=== PATIENT | male | born 1995 ===

== ENCOUNTER 2017-03-28 11:57 | Emergency (ER) | payer OTHER ==
[2017-03-28 12:03] VITALS: RESP 16; O2SAT 98
[2017-03-28] MEDS ORDERED: NS 1,000 ML IV ONE (12:46)
[2017-03-28] MEDS ORDERED: LORazepam 2 MG/ML INJ IVP ONE (12:46)
[2017-03-28] MEDS ORDERED: METOCLOPRAMIDE 10 MG/2 ML VIAL IVP ONE (12:46)
[2017-03-28 13:24] LABS: % IMMATURE GRANULYOCYTES 0.3 % (0.0-1.1); ABSOLUTE IMMATURE GRANULOCYTES 0.03 10^3/uL (0.00-0.10); ADD DIFF? NO; ADD MORPH? NO; ADD SCAN? NO; ATYPICAL LYMPHOCYTE FLAG 0 (0-99); FRAGMENT RBC FLAG 0 (0-99); HEMATOCRIT 45.5 % (40.0-51.0); HEMOGLOBIN 15.6 g/dL (13.7-17.5); LEFT SHIFT FLG 0 (0-99); LIPEMIA HEMOLYSIS FLAG 90 (0-99); MEAN CELL HEMOGLOBIN 31.1 pg (27.9-34.1); MEAN CELL HEMOGLOBIN CONCENTR. 34.3 g/dL (32.4-36.7); MEAN CELL VOLUME 90.8 fL (81.5-99.8); MEAN PLATELET VOLUME 11.1 fL (8.7-11.7); PLATELET CLUMPS FLAG 10 (0-99); PLATELET COUNT 224 10^3/uL (150-400); RED BLOOD CELL COUNT 5.01 10^6/uL (4.40-6.38); RED CELL DISTRIBUTION WIDTH 12.7 % (11.5-15.2)
[2017-03-28] MEDS: AMPICILLIN/SULBACTAM 3 GM in NS 100 ML IV ONE ×2 (13:42→14:24)
[2017-03-28 13:45] LABS: ANION GAP 13 mEq/L (8-16); CALCIUM 9.7 mg/dL (8.5-10.4); CARBON DIOXIDE 24 mEq/l (22-31); CHLORIDE 106 mEq/L (97-110); CREATININE 1.5 mg/dL (0.7-1.3); GLOMERULAR FILTRATION RATE 59; GLUCOSE 83 mg/dL (70-100); POTASSIUM 4.1 mEq/L (3.5-5.2); SODIUM 143 mEq/L (134-144)
[2017-03-28] MEDS ORDERED: AMPICILLIN/SULBACTAM 3 GM in NS 100 ML IV ONE (13:48)
--- NOTE | 2017-03-28 14:16 | EDPHY ---
H & P Stated Complaint: [facility] HPI/ROS: Chief complaint: Headache History of present illness: This is a 21-year-old male who is sent from [facility] to the emergency department for evaluation of a headache. Patient reports the onset the headache over the last few days. He describes pain across the front of his head as well as the back of his head. He states the pain is intermittent in nature. Only occurring for short periods of time. Usually precipitated by movement or pressure such as sneezing or coughing. He does state prior to the onset of the headache he has been dealing with sinus issues, he has been dealing with sinus issues for a number of weeks, including sinus pressure and runny nose. He denies other associated signs or symptoms including no current fevers, no other cold symptoms, no history of trauma, no neurologic symptoms such as paresthesias, weakness or paralysis or bowel or bladder dysfunction. 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 psh- deviated septum repair - Social History Smoking Status: Never smoked - Physical Exam Exam: General Appearance: Alert, nontoxic. Eyes: Pupils equal and round no pallor or injection. ENT, Mouth: Mucous membranes moist. Respiratory: There are no retractions, lungs are clear to auscultation. Cardiovascular: Regular rate and rhythm. Gastrointestinal: Abdomen is soft and non tender, no masses, bowel sounds normal. Neurological: Alert and oriented x4. Cranial nerves 2-12 grossly intact. Strength and sensation intact and symmetrical. There is no meningismus. Patient is ambulating without difficulty. Skin: Warm and dry, no rashes. Musculoskeletal: Neck is supple non tender. Extremities are symmetrical, full range of motion. Psychiatric: Patient is oriented X 3, there is no agitation. Constitutional: Initial Vital Signs Temperature (C) 36.6 C 03/28/17 12:01 Heart Rate 55 L 03/28/17 12:01 Respiratory Rate 16 03/28/17 12:01 Blood Pressure 117/66 03/28/17 12:01 O2 Sat (%) 98 03/28/17 12:01 O2 Delivery Mode Room Air Allergies/Adverse Reactions: No Known Allergies Allergy (Unverified 10/29/14 14:11) Home Medications: Medication Instructions Recorded CALCIUM 10/29/14 Percocet 5/325 (RX) 11/16/14 oxyCODONE/APAP 5/325 [Percocet 1 tab PO Q6 #15 tab 11/16/14 5/325] Amoxicillin/Clavulanate Pot 875 mg PO BID 10 Days 03/28/17 [Augmentin 875 MG TAB (*)] Medical Decision Making - Diagnostics Imaging Results: Imaging Impressions Head CT 03/28/17 12:49 Impression: 1. Negative brain 2. Bilateral sinus disease with a component of fluid in the sphenoid air cells. Results called to REYNALDO Matta at 1:30 PM General information for patients regarding this examination can be found at [email or web address]. If you have questions or comments about this report, please contact me at (hospital) or [phone] (cell). Imaging: Discussed imaging studies w/ call center agent Radiologist ED Course/Re-evaluation: Patient is discussed with my secondary supervising physician Dr. Tristan Broderick. Patient presents to the emergency department for evaluation of a headache. He is nontoxic. Afebrile and vital signs are stable. Physical exam is unremarkable without meningeal signs and a nonfocal neurologic exam. Ultimately I believe history, physical exam and evaluation is consistent with sinus disease. He has had this problem for a number of weeks. He is given a dose of antibiotics here and will be discharged home on antibiotics. Home care is discussed. He is asked to avoid NSAIDs given his history of only 1 kidney. His creatinine is at 1.5 today, he states he normally lives at 1.6-1.7, he does have a scleroscope tester and is asked to continue following with his scleroscope tester for this. He is to follow up with [facility] for recheck as well. Return precautions are given. Patient voiced understanding and agreement with plan. Differential Diagnosis: Included but not limited to migraine headache, tension headache, cluster headache, sinus headache unlikely meningitis, intracranial lesion, clot or bleed - Data Points Laboratory Results: Laboratory Results 03/28/17 13:15 03/28/17 13:15 03/28/17 03/28/17 13:15 13:15 WBC 9.78 10^3/uL H 10^3/uL (3.80-9.50) RBC 5.01 10^6/uL 10^6/uL (4.40-6.38) Hgb 15.6 g/dL g/dL (13.7-17.5) Hct 45.5 % % (40.0-51.0) MCV 90.8 fL fL (81.5-99.8) MCH 31.1 pg pg (27.9-34.1) MCHC 34.3 g/dL g/dL (32.4-36.7) RDW 12.7 % % (11.5-15.2) Plt Count 224 10^3/uL 10^3/uL (150-400) MPV 11.1 fL fL (8.7-11.7) Neut % (Auto) 71.7 % % (39.3-74.2) Lymph % (Auto) 17.7 % % (15.0-45.0) [place] % (Auto) 8.9 % % (4.5-13.0) Eos % (Auto) 0.9 % % (0.6-7.6) Baso % (Auto) 0.5 % % (0.3-1.7) Nucleat RBC Rel Count 0.0 % % (0.0-0.2) Absolute Neuts (auto) 7.01 10^3/uL H 10^3/uL (1.70-6.50) Absolute Lymphs (auto) 1.73 10^3/uL 10^3/uL (1.00-3.00) Absolute Monos (auto) 0.87 10^3/uL H 10^3/uL (0.30-0.80) Absolute Eos (auto) 0.09 10^3/uL 10^3/uL (0.03-0.40) Absolute Basos (auto) 0.05 10^3/uL 10^3/uL (0.02-0.10) Absolute Nucleated RBC 0.00 10^3/uL 10^3/uL (0-0.01) Immature Gran % 0.3 % % (0.0-1.1) Immature Gran # 0.03 10^3/uL 10^3/uL (0.00-0.10) Sodium 143 mEq/L mEq/L (134-144) Potassium 4.1 mEq/L mEq/L (3.5-5.2) Chloride 106 mEq/L mEq/L (97-110) Carbon Dioxide 24 mEq/l mEq/l (22-31) Anion Gap 13 mEq/L mEq/L (8-16) BUN 17 mg/dL mg/dL (7-23) Creatinine 1.5 mg/dL H mg/dL (0.7-1.3) Estimated GFR 59 Glucose 83 mg/dL mg/dL (70-100) Calcium 9.7 mg/dL mg/dL (8.5-10.4) Medications Given: Discontinued Medications Diphenhydramine HCl (Benadryl Injection) 25 mg IVP EDNOW ONE Stop: 03/28/17 12:47 Last Admin: 03/28/17 13:30 Dose: 25 mg Sodium Chloride (Ns) 1,000 mls @ 0 mls/hr IV ONCE ONE; Wide Open PRN Reason: Protocol Stop: 03/28/17 12:47 Last Admin: 03/28/17 13:30 Dose: 1,000 mls Ampicillin Sodium/Sulbactam (Sodium 3 gm/ Sodium Chloride) 100 mls @ 200 mls/ hr IV EDNOW ONE PRN Reason: Protocol Stop: 03/28/17 14:07 Last Admin: 03/28/17 14:24 Dose: 100 mls Ampicillin Sodium/Sulbactam (Sodium 3 gm/ Sodium Chloride) 100 mls @ 200 mls/ hr IV EDNOW ONE PRN Reason: Protocol Stop: 03/28/17 14:17 Last Admin: 03/28/17 14:25 Dose: Not Given Lorazepam (Ativan Injection) 0.5 mg IVP EDNOW ONE Stop: 03/28/17 12:47 Last Admin: 03/28/17 13:29 Dose: 0.5 mg Metoclopramide HCl (Reglan Injection) 10 mg IVP EDNOW ONE Stop: 03/28/17 12:47 Last Admin: 03/28/17 13:31 Dose: 10 mg Departure - Departure Disposition: Home, Routine, Self-Care Clinical Impression: Headache Qualifiers: Headache type: unspecified Headache chronicity pattern: acute headache Intractability: not intractable Qualified Code(s): R51 - Headache Sinusitis Qualifiers: Sinusitis location: maxillary Chronicity: acute Recurrence: non-recurrent Qualified Code(s): J01.00 - Acute maxillary sinusitis, unspecified Condition: Good Instructions: Sinusitis (ED), Acute Headache (ED) Additional Instructions: Follow-up with your primary care doctor and an Ears Nose and Throat doctor for continued evaluation and care Take antibiotics as prescribed Continue to take Zyrtec as directed Continue to use your nasal steroid, Rhinocort, 2 sprays each nostril daily If symptoms worsen or new symptoms develop return to the emergency room for recheck Referrals: [facility] [Other] - As per Instructions Shorty Garza MD [Medical Doctor] - As per Instructions Prescriptions: Amoxicillin/Clavulanate Pot [Augmentin 875 MG TAB (*)] 875 mg PO BID 10 Days
[2017-03-28 14:29] VITALS: BP 112/76; PULSE 81; TEMP 97.7
== END 2017-03-28 14:44 | disposition home or self-care (01) ==
DX: J01.00 Acute maxillary sinusitis, unspecified (principal); E86.9 Volume depletion, unspecified
CPT/HCPCS: 96374; J0295; J1200; J2060; J2765